=== PATIENT | female | born 1965 | race Hispanic/Latino ===

== ENCOUNTER 2017-03-13 08:00 | Outpatient (CLI) | payer SELFPAY | END 2017-03-13 08:01 | disposition home or self-care (01) | LOC: BICMAMMO 08:00 | PROVIDERS: ATTEND Family Medicine | DX: N63.0 Unspecified lump in unspecified breast (principal) | CPT/HCPCS: G0206-LT ==

== ENCOUNTER 2019-05-05 07:02 | Outpatient (CLI) | payer OTHER ==
--- NOTE | 2019-05-05 09:07 | ULT ---
SONOGRAM RIGHT UPPER QUADRANT: HISTORY: Right upper quadrant pain. Abnormal liver function tests. FINDINGS: Gallbladder is well distended. No stones visible. The common duct is 0.5 cm. Liver is diffusely echogenic with areas of fatty sparing near the gallbladder fossa. No intrahepatic biliary dilatation. No free fluid. Immediately deep to the pancreatic tail is an ill-defined hypoechoic area with a mass-like appearance measuring up to 3.4 cm x 2.5 cm greatest diameters. IMPRESSION: 1. Sonographic concern for solid mass at the pancreatic tail. Please consider dedicated CT pancreas with IV and oral contrast, for better characterization. 2. No evidence of gallstones or biliary obstruction. 3. Hepatosteatosis. CODE T POS: [place]
== END 2019-05-05 07:03 | disposition home or self-care (01) ==
LOC: BICULT 07:02
PROVIDERS: ATTEND Family Medicine
DX: R74.0 Nonspecific elevation of levels of transaminase and lactic acid dehydrogenase [LDH] (principal); K76.0 Fatty (change of) liver, not elsewhere classified
CPT/HCPCS: 76705

== ENCOUNTER 2021-03-09 15:38 | Outpatient (CLI) | payer OTHER | END 2021-03-09 15:39 | disposition home or self-care (01) | LOC: BICRAD 15:38 | PROVIDERS: ATTEND Family Medicine | DX: M79.641 Pain in right hand (principal); M79.642 Pain in left hand ==